=== PATIENT | female | born 1985 | race Two or more races ===

== ENCOUNTER 2020-05-29 10:46 | Emergency (ER) | payer OTHER ==
[~2020-05-29] VITALS: Ht 170.2 cm; Wt 80.0 kg
--- NOTE | 2020-05-29 10:54 | PHYS DOC ---
Past History Past Medical History: No Pertinent History Adult General HPI HPI Patient is a 25-year-old female who presents for UTI-like symptoms. Onset was 8 days ago. She self medicated with unknown dose of home amoxicillan but symptoms worsened prompting her to see local Urgent Care 2 days ago. UA was performed and clean but there was concern given ongoing symptoms and Amoxicillin use so RX Cipro and pyridium was given. Patient has ongoing dysuria and pain with urination in addition to left flank pain today, no fever. No history of kidney stones Review of Systems Review of Systems Fourteen body systems of review of systems have been reviewed. See HPI for pertinent positives and negative responses, other hoover all other systems are negative, non-pertinent or non-contributory Physical Exam Physical Exam Constitutional: Well developed, well nourished, mod distress, non-toxic appearance. HENT: Normocephalic, atraumatic, bilateral external ears normal, oropharynx moist, no oral exudates, nose normal. Eyes: PERRLA, EOMI, conjunctiva normal, no discharge. Neck: Normal range of motion, no tenderness, supple, no stridor. Cardiovascular: Heart rate regular, sinus rhythm, no murmurs rubs or gallops Lungs & Thorax: Bilateral breath sounds clear to auscultation Abdomen: Bowel sounds normal, soft, suprapubic tenderness, no guarding or rebound, no masses, no pulsatile masses. Nonsurgical abdomen, no peritoneal signs Skin: Warm, dry, no erythema, no rash. Back: No tenderness, no CVA tenderness. Extremities: No tenderness, no cyanosis, no clubbing, ROM intact, no edema. Neurologic: Alert and oriented X 3, grossly normal motor & sensory function, no focal deficits noted. Psychologic: Affect normal, judgement normal, anxious mood Current Patient Data Vital Signs Vital Signs Date Time Temp Pulse Resp B/P (MAP) Pulse Ox O2 Delivery O2 Flow Rate FiO2 05/29/20 15:03 67 18 154/88 (110) 97 Room Air 05/29/20 11:00 96.5 Lab Results Laboratory Tests Test 05/29/20 11:04 05/29/20 12:26 Urine Collection Type Unknown Urine Color Red Urine Clarity Bloody Urine pH Urine Specific [place] Urine Protein (NEG-TRACE) Urine Glucose (UA) mg/dL (NEG) Urine Ketones (Stick) mg/dL (NEG) Urine Blood (NEG) Urine Nitrite (NEG) Urine Bilirubin (NEG) Urine Urobilinogen Dipstick mg/dL (0.2 mg/dL) Urine Leukocyte Esterase (NEG) Urine RBC 20-40 /HPF (0-2) Urine WBC 5-10 /HPF (0-4) Urine Squamous Epithelial Cells Few /LPF Urine Bacteria Many /HPF (0-FEW) Urine Mucus Slight /LPF Urine Test Negative (NEG) White Blood Count 11.9 x10^3/uL (4.0-11.0) Red Blood Count 4.79 x10^6/uL (3.50-5.40) Hemoglobin 13.8 g/dL (12.0-15.5) Hematocrit 42.1 % (36.0-47.0) Mean Corpuscular Volume 88 fL (79-100) Mean Corpuscular Hemoglobin 29 pg (25-35) Mean Corpuscular Hemoglobin Concent 33 g/dL (31-37) Red Cell Distribution Width 13.1 % (11.5-14.5) Platelet Count 295 x10^3/uL (140-400) Neutrophils (%) (Auto) 81 % (31-73) Lymphocytes (%) (Auto) 14 % (24-48) Monocytes (%) (Auto) 5 % (0-9) Eosinophils (%) (Auto) 0 % (0-3) Basophils (%) (Auto) 0 % (0-3) Neutrophils # (Auto) 9.6 x10^3uL (1.8-7.7) Lymphocytes # (Auto) 1.7 x10^3/uL (1.0-4.8) Monocytes # (Auto) 0.5 x10^3/uL (0.0-1.1) Eosinophils # (Auto) 0.0 x10^3/uL (0.0-0.7) Basophils # (Auto) 0.0 x10^3/uL (0.0-0.2) Sodium Level 135 mmol/L (136-145) Potassium Level 3.8 mmol/L (3.5-5.1) Chloride Level 101 mmol/L (98-107) Carbon Dioxide Level 24 mmol/L (21-32) Anion Gap 10 (6-14) Blood Urea Nitrogen 14 mg/dL (7-20) Creatinine 0.9 mg/dL (0.6-1.0) Estimated GFR (Cockcroft-Gault) 70.5 BUN/Creatinine Ratio 16 (6-20) Glucose Level 94 mg/dL (70-99) Calcium Level 8.4 mg/dL (8.5-10.1) Total Bilirubin 0.4 mg/dL (0.2-1.0) Aspartate Amino Transf (AST/SGOT) 15 U/L (15-37) Alanine Aminotransferase (ALT/SGPT) 20 U/L (14-59) Alkaline Phosphatase 90 U/L (46-116) Total Protein 7.7 g/dL (6.4-8.2) Albumin 3.6 g/dL (3.4-5.0) Albumin/Globulin Ratio 0.9 (1.0-1.7) EKG EKG [] Radiology/Procedures Radiology/Procedures Examination: Ultrasound kidneys History : Left flank pain COMPARISON: None available Findings: The right kidney measures 10.5 x 5.0 x 5.1 cm. The left kidney measures 12.0 x 6.5 x 7.3 cm. Moderate left-sided hydronephrosis. There is a 9 mm echogenicity identified likely in the distal left ureter just proximal to the urinary bladder probably ureter calculus. IMPRESSION: 1. Moderate left-sided hydronephrosis with possible 9 mm calculus in the distal left ureter. Electronically signed by: Quincy Linton MD (05/29/2020 11:53 AM) [id number] EXAM: Abdomen and pelvis CT without intravenous contrast. HISTORY: Hydronephrosis. Ureterolithiasis. TECHNIQUE: Computed tomographic images of the abdomen and pelvis were obtained without contrast. Multiplanar reformatting was performed. *One or more of the following individualized dose reduction techniques were utilized for this examination: 1. Automated exposure control. 2. Adjustment of the mA and/or kV according to patient size. 3. Use of iterative reconstruction technique. COMPARISON: Sonogram performed on the same date. FINDINGS: Evaluation of the lower thorax is unremarkable. No hepatic lesion is seen. The gallbladder, pancreas, spleen and adrenal glands are unremarkable. There is moderate left hydronephrosis and hydroureter extending to an obstructing 7 mm stone within the distal ureter, at or immediately adjacent to the ureterovesical junction. No additional measurable renal or ureteral stone is seen. No solid or cystic renal lesion is seen on this noncontrast exam. There is no appendicitis. There is no bowel obstruction. The uterus and ovaries are unremarkable. The aorta is normal in caliber. There is no lymphadenopathy. There is a tiny fat-containing umbilical hernia. There is no suspicious osseous lesion. IMPRESSION: Moderate left hydronephrosis and hydroureter secondary to an obstructing 7 mm stone within the distal ureter, at or immediately adjacent to the uterovesical junction. Electronically signed by: Luz Stauffer MD (05/29/2020 2:51 PM) [facility] Heart Score Risk Factors: Risk Factors: DM, Current or recent (<one month) smoker, HTN, HLP, family history of CAD, obesity. Risk Scores: Risk Factors: DM, Current or recent (<one month) smoker, HTN, HLP, family history of CAD, obesity. Course & Med Decision Making Course & Med Decision Making Presentation most consistent with Renal Colic from a Non-infected Kidney Stone. Given History and Exam I have lower suspicion for atypical appendicitis, genital torsion, acute cholecystitis, AAA, Aortic Dissection, Serious Bacterial Illness or other emergent intraabdominal pathology. Urology at [facility], Dr Fitzpatrick, contact and case discussed. She advised CT after initial US to map patient prior to outpatient intervention if indicated. Patient tolerated ER intervention. Patient tolerating PO and pain controlled Disposition: Discharge. Strict return precautions for infected stone or PO intolerance discussed. She is to call [facility] on discharge to setup outpatient follow-up later this week. Patient to continue Cipro as previously prescribed to completion Dragon Disclaimer Dragon Disclaimer This electronic medical record was generated, in whole or in part, using a voice recognition dictation system. Departure Departure: Impression: Primary Impression: Kidney stone on left side Disposition: 01 DC HOME SELF CARE/HOMELESS Condition: IMPROVED Referrals: PCP,UNKNOWN (PCP) Patient Instructions: Kidney Stones Additional Instructions: As discussed prior to ER departure, please call, Dr Fitzpatrick, who is the urologist I spoke with that [facility] in [place] regarding your case. She can be contacted at [phone]. You will need to discuss need for appointment this upcoming week for repeat examination and intervention as indicated if you still do not pass the stone. You have been given pain medication, antinausea medication, and Flomax which will assist in helping you expel the kidney stone. If any concerning signs or symptoms such as worsening pain, fever etc. present please do not hesitate to come back for repeat examination It was a pleasure to take care of you today and I wish you a speedy recovery! Scripts Ondansetron Hcl (ZOFRAN) 4 Mg Tablet 1 TAB PO PRN Q6-8HRS for NAUSEA, #15 TAB Prov: BLAIR HASSAN DO 05/29/20 Hydrocodone Bit/Acetaminophen (NORCO 5-325 TABLET) 1 Each Tablet 1 TAB PO PRN Q6HRS PRN for PAIN, #23 TAB 0 Refills Prov: BLAIR HASSAN DO 05/29/20 Tamsulosin Hcl (FLOMAX) 0.4 Mg Cap.er.24h 1 CAP PO DAILY for KIDNEY STONE, #30 CAP 11 Refills Prov: BLAIR HASSAN DO 05/29/20 BLAIR HASSAN DO May 29, 2020 10:54
[2020-05-29] MEDS ORDERED: ACETAMINOPHEN 325 MG TABLET PO ONE (11:15)
[2020-05-29 11:26] LABS: U PREG PATIENT NEGATIVE (NEG)
[2020-05-29] MEDS ORDERED: ONDANSETRON ODT 4 MG TAB.RAPDIS PO ONE (11:45)
--- NOTE | 2020-05-29 11:56 | RAD ---
Examination: Ultrasound kidneys History : Left flank pain COMPARISON: None available Findings: The right kidney measures 10.5 x 5.0 x 5.1 cm. The left kidney measures 12.0 x 6.5 x 7.3 cm. Moderate left-sided hydronephrosis. There is a 9 mm echogenicity identified likely in the distal left ureter just proximal to the urinary bladder probably ureter calculus. IMPRESSION: 1. Moderate left-sided hydronephrosis with possible 9 mm calculus in the distal left ureter. Electronically signed by: Quincy Linton MD (05/29/2020 11:53 AM) [id number]
[2020-05-29] MEDS ORDERED: IV NORMAL SALINE 1,000ML 1,000 ML IV ONE (12:30)
[2020-05-29] MEDS ORDERED: KETOROLAC 15 MG/ML VIAL. IVP ONE (12:30)
[2020-05-29] MEDS ORDERED: ONDANSETRON PF 4 MG/2 ML VIAL. IVP ONE (12:45)
[2020-05-29 12:46] LABS: BASO % 0 % (0-3); EOS % 0 % (0-3); HEMATOCRIT 42.1 % (36.0-47.0); HEMOGLOBIN 13.8 g/dL (12.0-15.5); LYMPH # 1.7 x10^3/uL (1.0-4.8); LYMPH % 14 % (24-48); MEAN CORPUSCULAR HEMOGLOBIN 29 pg (25-35); MEAN CORPUSCULAR HGB CONC 33 g/dL (31-37); MEAN CORPUSCULAR VOLUME 88 fL (79-100); MONO # 0.5 x10^3/uL (0.0-1.1); MONO % 5 % (0-9); NEUT # 9.6 x10^3uL (1.8-7.7); NEUT % 81 % (31-73); PLATELET COUNT 295 x10^3/uL (140-400); RED BLOOD COUNT 4.79 x10^6/uL (3.50-5.40); RED CELL DISTRIBUTION WIDTH 13.1 % (11.5-14.5); WHITE BLOOD COUNT 11.9 x10^3/uL (4.0-11.0)
[2020-05-29 12:51] LABS: CALCIUM 8.4 mg/dL (8.5-10.1); CREATININE 0.9 mg/dL (0.6-1.0); GFR 70.5; POTASSIUM 3.8 mmol/L (3.5-5.1)
[2020-05-29 12:57] LABS: ALBUMIN 3.6 g/dL (3.4-5.0); ALBUMIN/GLOBULIN RATIO 0.9 (1.0-1.7); TOTAL BILIRUBIN 0.4 mg/dL (0.2-1.0); TOTAL PROTEIN 7.7 g/dL (6.4-8.2)
[2020-05-29] MEDS ORDERED: MORPHINE SULFATE 4 MG/ML DISP.SYRIN. IV ONE (13:30)
[2020-05-29 13:42] LABS: CLARITY,URINE BLOODY; COLOR,URINE RED
[2020-05-29 13:52] LABS: BACTERIA,URINE MANY /HPF (0-FEW); RBC,URINE 20-40 /HPF (0-2); SQUAMOUS EPITHELIAL CELL,UR FEW /LPF
--- NOTE | 2020-05-29 14:54 | RAD ---
EXAM: Abdomen and pelvis CT without intravenous contrast. HISTORY: Hydronephrosis. Ureterolithiasis. TECHNIQUE: Computed tomographic images of the abdomen and pelvis were obtained without contrast. Multiplanar reformatting was performed. *One or more of the following individualized dose reduction techniques were utilized for this examination: 1. Automated exposure control. 2. Adjustment of the mA and/or kV according to patient size. 3. Use of iterative reconstruction technique. COMPARISON: Sonogram performed on the same date. FINDINGS: Evaluation of the lower thorax is unremarkable. No hepatic lesion is seen. The gallbladder, pancreas, spleen and adrenal glands are unremarkable. There is moderate left hydronephrosis and hydroureter extending to an obstructing 7 mm stone within the distal ureter, at or immediately adjacent to the ureterovesical junction. No additional measurable renal or ureteral stone is seen. No solid or cystic renal lesion is seen on this noncontrast exam. There is no appendicitis. There is no bowel obstruction. The uterus and ovaries are unremarkable. The aorta is normal in caliber. There is no lymphadenopathy. There is a tiny fat-containing umbilical hernia. There is no suspicious osseous lesion. IMPRESSION: Moderate left hydronephrosis and hydroureter secondary to an obstructing 7 mm stone within the distal ureter, at or immediately adjacent to the uterovesical junction. Electronically signed by: Luz Stauffer MD (05/29/2020 2:51 PM) [facility]
[2020-05-29 15:03] VITALS: BP 154/88
[2020-05-29] MEDS ORDERED: TAMS0.4C97 PO (15:07)
[2020-05-29] MEDS ORDERED: HYDR-3165 PO (15:07)
[2020-05-29] MEDS ORDERED: ONDA4TAB7 PO (15:07)
== END 2020-05-29 15:13 | disposition home or self-care (01) ==
LOC: ER 10:46
DX: N13.2 Hydronephrosis with renal and ureteral calculous obstruction (principal); R30.0 Dysuria; R10.9 Unspecified abdominal pain
CPT/HCPCS: 36415; 74176; 76775; 80053; 81001; 81025; 85025; 87086; 96361; 96374; 96375; 99285; J1885; J2270; J2405; J7030; Q0162